=== PATIENT | male | born 1965 | race Caucasian/White ===

== ENCOUNTER 2016-05-30 08:43 | Emergency (ER) | payer OTHER ==
[~2016-05-30] VITALS: Ht 180.3 cm; Wt 88.5 kg
[2016-05-30 08:51] VITALS: BP 129/76
== END 2016-05-30 10:07 | disposition home or self-care (01) ==
LOC: ER 08:45
DX: R05 Cough (principal); R21 Rash and other nonspecific skin eruption
CPT/HCPCS: 71010; 99283; A4606; Z7610

== ENCOUNTER 2016-07-27 01:59 | Emergency (ER) | payer OTHER ==
[~2016-07-27] VITALS: Ht 180.3 cm; Wt 90.7 kg
--- NOTE | 2016-07-27 02:15 | NUR ---
To bed 9 a 51 yo male bibself with c/o nonproductive cough x 5 days. Afebrile. No SOB. Breathing even and unlabored. Initiated comfort measures. Awaiting for er md reynolds.
--- NOTE | 2016-07-27 04:18 | NUR ---
started a saline lock on the right ac g18, blood drawn and sent to lab.
[2016-07-27] MEDS ORDERED: DEXAMETHASONE SOD PHOSPHATE 10 MG/ML VIAL ONE (04:31)
[2016-07-27 04:34] LABS: BASOPHILS % (AUTO) 1.2 % (0.0-2.0); EOSINOPHILS # (AUTO) 0.4 /CMM (0.0-0.7); EOSINOPHILS % (AUTO) 10.9 % (0.0-6.0); HEMATOCRIT 41 % (39-51); HEMOGLOBIN 14.2 g/dL (13.5-17.5); LYMPHOCYTES # (AUTO) 1.3 /CMM (0.8-4.8); LYMPHOCYTES % (AUTO) 33.2 % (20.0-44.0); MEAN CORPUSCULAR HEMOGLOBIN 32 PG (26.0-33.0); MEAN CORPUSCULAR HGB CONC 35 g/dl (31.0-36.0); MEAN CORPUSCULAR VOLUME 92 fL (80-96); MONOCYTES # (AUTO) 0.3 /CMM (0.1-1.30); MONOCYTES % (AUTO) 6.7 % (2.0-12.0); NEUTROPHILS # (AUTO) 1.8 /CMM (1.8-8.9); PLATELET COUNT (AUTO) 89 /CMM (150-450); RDW COEFFICIENT OF VARIATION 14.1 (11.5-15.0); RED BLOOD CELL COUNT(AUTO) 4.47 MIL/uL (4.5-6.0); WHITE BLOOD COUNT (AUTO) 3.8 K/uL (4.3-11.0)
[2016-07-27 04:45] LABS: CALCIUM, SERUM 8.2 mg/dL (8.5-10.1); CREATININE 0.8 mg/dL (0.6-1.3); POTASSIUM 3.3 mmol/L (3.5-5.1)
[2016-07-27] MEDS ORDERED: IOHEXOL-300 100 ML VIAL IV ONE (04:45)
[2016-07-27] MEDS ORDERED: IV NS 0.9% 250 ML IV ONE (04:45)
[2016-07-27] MEDS ORDERED: DEXAMETHASONE SOD PHOSPHATE 4 MG/ML VIAL IM ONE (05:00)
--- NOTE | 2016-07-27 05:02 | NUR ---
patient to ct.
[2016-07-27 05:54] VITALS: BP 132/68
[2016-07-27] MEDS ORDERED: METF500T4 PO (06:59)
--- NOTE | 2016-07-27 07:25 | NUR ---
Report given to Martin MERCADO for jim.
--- NOTE | 2016-07-27 07:27 | NUR ---
RECEIVED REPORT FROM KIRAN MERCADO
--- NOTE | 2016-07-27 07:40 | NUR ---
PT ELOPE WITH IV HEPLOCK. WILL CALL [employer] AND INFECTION CONTROL DUE TO POSSIBLE TB . MD AWARE. UPDATED ADMITTING MD DR MILLAN.
--- NOTE | 2016-07-27 08:12 | NUR ---
CALLED [facility] FOR REPORT. INCIDENT NUMBER [id number]
== END 2016-07-27 08:43 | disposition left against medical advice (07) ==
LOC: ER 02:03
DX: R91.8 Other nonspecific abnormal finding of lung field (principal); E11.8 Type 2 diabetes mellitus with unspecified complications; Z59.0 Homelessness; I10 Essential (primary) hypertension; I50.9 Heart failure, unspecified; M54.30 Sciatica, unspecified side; E78.00 Pure hypercholesterolemia, unspecified
CPT/HCPCS: 36415; 71010; 71260; 80048; 83605; 85025; 87040 ×2; 87081; 93005; 99285; A4606; J1100; J7050; Q9967; Z7610

== ENCOUNTER 2018-06-07 02:52 | Emergency (ER) | payer OTHER ==
[~2018-06-07] VITALS: Ht 180.3 cm; Wt 77.1 kg
[~2018-06-07 02:52] MED LIST: METF-440 PO
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
--- NOTE | 2018-06-07 03:15 | NUR ---
MISAEL ARIZMENDI AT BEDSIDE.
[2018-06-07] MEDS ORDERED: ONDANSETRON 4 MG TAB.RAPDIS ONE (03:25)
[2018-06-07] MEDS ORDERED: HYDROCODONE/APAP 10/325MG 1 EA TABLET ONE (03:25)
--- NOTE | 2018-06-07 03:27 | NUR ---
XRAY AT BEDSIDE.
[2018-06-07] MEDS ORDERED: ONDANSETRON 4 MG TAB.RAPDIS SL ONE (03:30)
[2018-06-07] MEDS ORDERED: HYDROCODONE/APAP 10/325MG 1 EA TABLET PO ONE (03:30)
[2018-06-07] MEDS ORDERED: AZITHROMYCIN 250 MG TABLET ONE (03:50)
--- NOTE | 2018-06-07 03:57 | NUR ---
Patient discharged to home in stable condition. Written and verbal after care instructions given. Patient verbalizes understanding of instruction. Pt ambulatory with steady gait.
[2018-06-07 03:58] VITALS: BP 143/88
[2018-06-07] MEDS ORDERED: AZITHROMYCIN 250 MG TABLET PO ONE (04:00)
== END 2018-06-07 04:00 | disposition home or self-care (01) ==
LOC: ER 02:57
DX: G89.4 Chronic pain syndrome (principal); A31.0 Pulmonary mycobacterial infection; I11.0 Hypertensive heart disease with heart failure; I50.9 Heart failure, unspecified; M54.30 Sciatica, unspecified side; E78.00 Pure hypercholesterolemia, unspecified; Z91.018 Allergy to other foods; Z79.84 Long term (current) use of oral hypoglycemic drugs
CPT/HCPCS: 71045; 99284; A4606; Q0162

== ENCOUNTER 2018-06-30 20:30 | Emergency (ER) | payer OTHER ==
[~2018-06-30] VITALS: Ht 180.3 cm; Wt 99.8 kg
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
--- NOTE | 2018-06-30 21:20 | NUR ---
UNABLE TO GIVE URINE SAMPLE. PT URINATED BEFORE TRIAGE.
[2018-06-30] MEDS ORDERED: MORPHINE SULFATE INJ 4 MG/ML DISP.SYRIN ONE (21:27)
[2018-06-30] MEDS ORDERED: ONDANSETRON HCL/PF 4 MG/2 ML VIAL ONE (21:27)
[2018-06-30] MEDS ORDERED: IV NS 0.9% 1,000 ML BAG IV ONE (21:30)
[2018-06-30] MEDS ORDERED: MORPHINE SULFATE INJ 2 MG/ML DISP.SYRIN IV ONE (21:30)
[2018-06-30] MEDS ORDERED: ONDANSETRON HCL/PF 4 MG/2 ML VIAL IVP ONE (21:30)
[2018-06-30 21:46] LABS: BASOPHILS # (AUTO) 0.1 /CMM (0.0-0.2); BASOPHILS % (AUTO) 1.6 % (0.0-2.0); EOSINOPHILS % (AUTO) 9.2 % (0.0-6.0); HEMATOCRIT 41 % (39-51); HEMOGLOBIN 14.1 g/dL (13.5-17.5); LYMPHOCYTES # (AUTO) 1.5 /CMM (0.8-4.8); LYMPHOCYTES % (AUTO) 37.4 % (20.0-44.0); MEAN CORPUSCULAR HGB CONC 35 g/dl (31.0-36.0); MEAN CORPUSCULAR VOLUME 90 fL (80-96); MONOCYTES # (AUTO) 0.3 /CMM (0.1-1.30); MONOCYTES % (AUTO) 8.4 % (2.0-12.0); NEUTROPHILS # (AUTO) 1.8 /CMM (1.8-8.9); NEUTROPHILS % (AUTO) 43.4 % (43.0-81.0); PLATELET COUNT (AUTO) 127 /CMM (150-450); RED BLOOD CELL COUNT(AUTO) 4.51 MIL/uL (4.5-6.0)
[2018-06-30 21:53] LABS: CALCIUM, SERUM 8.9 mg/dL (8.5-10.1); CREATININE 0.8 mg/dL (0.6-1.3); POTASSIUM 3.5 mmol/L (3.5-5.1)
[2018-06-30 21:59] LABS: ALBUMIN 3.3 g/dL (3.4-5.0); BILIRUBIN,DIRECT 0.1 mg/dL (0.0-0.2); BILIRUBIN,TOTAL 0.4 mg/dL (0.2-1.0); TOTAL PROTEIN, SERUM 7.3 g/dL (6.4-8.2)
--- NOTE | 2018-06-30 22:22 | NUR ---
PT WAS SLEEPING SOUNDLY AND WAS 93% ON RA. PT WAS PLACED ON 2L O2 VIA NC AND IS NOW SATURATING AT 98%. PT APPEARS TO BE COMFORTABLE. VSS
--- NOTE | 2018-06-30 22:25 | NUR ---
PT REC'D A SANDWICH AND JUICE. PT TOLERATED PO WELL.
--- NOTE | 2018-06-30 22:56 | NUR ---
IV removed. Catheter intact and site benign. Pressure and 4x4 applied to site. No bleeding noted. PT AMBULATED TO THE BATHROOM WITH A STEADY GAIT. VSS.
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
--- NOTE | 2018-06-30 23:00 | NUR ---
PT WAS ASKED TO WAIT FOR THE XRAY FINDINGS TO BE PRINTED OUT. PT RETURNED TO ER BED #13 AND WAITED.
--- NOTE | 2018-06-30 23:25 | NUR ---
PT WAITED TO RECEIVE A COPY OF THE IMAGING FINDINGS. PT AMBULATED OUT WITH A STEADY GAIT. NAD NOTED. PT WAS INSTRUCTED NOT TO DRIVE.
[2018-06-30 23:27] VITALS: BP 126/85
== END 2018-06-30 23:29 | disposition home or self-care (01) ==
LOC: ER 20:32
DX: R60.0 Localized edema (principal); K80.50 Calculus of bile duct without cholangitis or cholecystitis without obstruction; K74.60 Unspecified cirrhosis of liver; R91.1 Solitary pulmonary nodule; I11.0 Hypertensive heart disease with heart failure; I50.9 Heart failure, unspecified; M54.30 Sciatica, unspecified side; E78.00 Pure hypercholesterolemia, unspecified; Z59.0 Homelessness; Z91.018 Allergy to other foods; Z79.84 Long term (current) use of oral hypoglycemic drugs
CPT/HCPCS: 36415; 71045; 76705; 80048; 80076; 83690; 85025; 85730; 96374; 96375; 99284; A4606; J2270; J2405; J7030

== ENCOUNTER 2018-07-03 22:53 | Emergency (ER) | payer OTHER | END 2018-07-04 00:04 | disposition left against medical advice (07) | LOC: ER 22:58 | DX: Z53.21 Procedure and treatment not carried out due to patient leaving prior to being seen by health care provider (principal) ==

== ENCOUNTER 2018-07-08 22:57 | Emergency (ER) | payer OTHER ==
[~2018-07-08] VITALS: Ht 180.3 cm; Wt 99.8 kg
--- NOTE | 2018-07-08 23:20 | NUR ---
PT BBRA FOR FOOT SWELLING; PT AAOX2-3, PT ON MONITOR, VSS, NADN OTED, PENDING MD VELAZQUEZ
--- NOTE | 2018-07-08 23:55 | NUR ---
DR NOE WAS PAGED
--- NOTE | 2018-07-09 | NUR ---
DR. ISBELL SPEAKING TO DR. LEACH REGARDING ADMISSION
[2018-07-09 08:48] VITALS: BP 120/80
== END 2018-07-09 08:51 | disposition home or self-care (01) ==
LOC: ER 23:04
DX: R60.0 Localized edema (principal); E78.00 Pure hypercholesterolemia, unspecified; F17.200 Nicotine dependence, unspecified, uncomplicated; Z98.890 Other specified postprocedural states; Z91.018 Allergy to other foods; Z79.84 Long term (current) use of oral hypoglycemic drugs
CPT/HCPCS: Z7502